=== PATIENT | male | born 1950 | race African-American/Black ===

== ENCOUNTER 2016-10-07 21:18 | Emergency (ER) | payer OTHER ==
[~2016-10-07] VITALS: Ht 180.3 cm; Wt 145.2 kg
--- NOTE | ~2016-10-07 | EKG ---
[place] [id number] [email or web address] [address] ELECTROCARDIOGRAM REPORT Name: TAMEKAMANOJ Room #: DEP Alexey#: [id number] Admission: 10/07/16 Attend Phys: Discharge: 10/08/16 Date of : 50 Report #: [id number] THIS REPORT FOR: //name// [facility] ED Test Date: 2016-10-07 Test Time: 21:25:19 Pat Name: MANOJ ENGLISH Department: Room: Gender: M Staffing Mgr: DEMARCUS : 1950 Requested By: Saida Cordova Order Number: [id number] MD: Dewey Garcia Measurements Intervals Elfrida Rate: 90 P: 49 WA: 160 QRS: 22 QRSD: 104 T: 231 QT: 332 QTc: 407 Interpretive Statements Sinus rhythm Probable left atrial enlargement Abnormal ST & T, diffuse leads No previous ECG available for comparison Electronically Signed On 10-09-2016 8:41:57 CARD PROCESSING CLERK by Dewey Garcia [email or web address] <ELECTRONICALLY SIGNED> By: Dewey Garcia MD, [facility] 10/09/16 0841 [id number] 24 Dewey Garcia MD, FACC /EPI
[2016-10-07 21:53] LABS: BASOPHILS 0.6 % (0.0-2.0); EOSINOPHILS 1.3 % (0.0-3.0); HEMATOCRIT 40.1 % (42.0-52.0); HEMOGLOBIN 13.8 gm/dL (14.0-18.0); LYMPHOCYTES 44.8 % (24.0-44.0); MCH 30.1 pg (26.0-34.0); MCHC 34.3 % (28.0-37.0); MCV 87.6 fL (80.0-100.0); MONOCYTES 9.3 % (1.0-8.0); PLATELET COUNT 201 thou/uL (150-400); RBC 4.58 mil/uL (4.50-6.00); RDW 15.3 % (10.5-14.5); WBC 6.8 thou/uL (4.0-11.0)
[2016-10-07 21:54] LABS: MANUAL DIFF NO
[2016-10-07 22:07] LABS: ANION GAP 12 mmol/L (7-16); BUN 14 mg/dL (7-18); CHLORIDE 103 mmol/L (98-107); CO2 23 mmol/L (21-32); CREATININE 1.4 mg/dL (0.6-1.3); POTASSIUM 3.7 mmol/L (3.5-5.1); SODIUM 138 mmol/L (136-145)
[2016-10-07 22:14] LABS: TROPONIN-I < 0.04 ng/mL (<0.04-0.07)
[2016-10-07] MEDS ORDERED: CLONIDINE0.1 PO (22:22)
[2016-10-07 22:27] LABS: GLUCOSE 109 mg/dL (70-99)
[2016-10-07 22:43] VITALS: BP 163/104
== END 2016-10-08 00:03 | disposition home or self-care (01) ==
LOC: ER 21:18
PROVIDERS: Emergency Medicine
DX: I10 Essential (primary) hypertension (principal); R94.31 Abnormal electrocardiogram [ECG] [EKG]

== ENCOUNTER 2019-09-24 10:06 | Emergency (ER) | payer OTHER ==
[~2019-09-24] VITALS: Ht 180.3 cm; Wt 132.9 kg
[~2019-09-24 10:06] MED LIST: CLONIDINE0.1 PO
[2019-09-24 10:28] LABS: ABSOLUTE NEUTROPHILS 3.9 thou/uL (1.4-8.2); BASOPHILS 0.8 % (0.0-2.0); EOSINOPHILS 0.6 % (0.0-3.0); HEMATOCRIT 40.1 % (42.0-52.0); HEMOGLOBIN 13.7 gm/dL (14.0-18.0); LYMPHOCYTES 34.7 % (24.0-44.0); MCH 31.2 pg (26.0-34.0); MCHC 34.3 g/dL (28.0-37.0); MONOCYTES 7.4 % (1.0-8.0); PLATELET COUNT 205 thou/uL (150-400); POLYS 56.5 % (36.0-66.0); RBC 4.41 mil/uL (4.50-6.00); RDW 14.5 % (10.5-14.5); WBC 6.9 thou/uL (4.0-11.0)
[2019-09-24 10:31] LABS: CREATININE 1.2 mg/dL (0.7-1.3); POTASSIUM 4.4 mmol/L (3.5-5.1)
[2019-09-24 10:49] VITALS: BP 195/106
[2019-09-24] MEDS ORDERED: HYDROCHLOROTH12.5 M2 PO (10:56)
== END 2019-09-24 11:11 | disposition home or self-care (01) ==
LOC: ER 10:06
PROVIDERS: Emergency Medicine
DX: R04.0 Epistaxis (principal); I10 Essential (primary) hypertension; E66.9 Obesity, unspecified; Z68.41 Body mass index [BMI] 40.0-44.9, adult